=== PATIENT | female | born 1940 | race Caucasian/White ===

== ENCOUNTER 2022-01-16 20:13 | Emergency (ER) | payer MEDICARE ==
[2022-01-16] MEDS ORDERED: TORAdol 30 mg Injection IV ONE (20:44)
[2022-01-16] MEDS ORDERED: DECADRON 10MG INJ. IV ONE (20:46)
[2022-01-16] MEDS ORDERED: DECADRON 10MG INJ. ONE (20:48)
[2022-01-16] MEDS ORDERED: TORAdol 30 mg Injection ONE (20:48)
[2022-01-16] MEDS ORDERED: TORAdol 30 mg Injection IM ONE (20:50)
[2022-01-16] MEDS ORDERED: DECADRON 10MG INJ. IM ONE (20:51)
--- NOTE | 2022-01-16 20:53 | ERPHSYRPT ---
- History of Present Illness Time Seen by Provider: 01/16/22 20:47 Source: patient Exam Limitations: no limitations Patient Subjective Stated Complaint: pt states "My back has been hurting for a month. I have seen my doctor for it and I have a MRI scheduled on Sunday." Triage Nursing Assessment: pt ambulatory to bed by self, pt assisted in bed by this nurse, pt alert and oriented x3, pt c/o low back pain x1 month, pt has seen PCP and have done xrays on back but they did not find any abnormal result, pt has MRI scheduled for Sunday Physician History: Patient is 81-year-old female presents to our ED with chronic back pain. Patient has seen a chiropractor for her back pain. He ordered an x-ray that was essentially read as negative. Patient follow-up with her primary care doctor who ordered an MRI of her back. MRI scheduled for this coming Sunday. Patient states her doctor believes it is a pinched nerve. Patient had a work-up initiated which included a urinalysis. Patient is UA was negative. No change in the character of her pain. Pain described as an ache that is across the lower back. However she occasionally feels a shooting sensation down her right leg into her thigh. No trauma. No fever. No recent back procedures. No change in bowel bladder function. No saddle anesthesia. Symptoms are mild to moderate in intensity. Patient declined narcotic pain medication. Daughter at bedside. They voiced no other complaints or concerns at this time. Portions of this note were created with voice recognition technology. There may be grammatical, spelling, punctuation or sound alike errors Timing/Duration: week(s) (4 weeks) Method of Injury: unknown Quality: aching Back Pain Location: lumbar spine Back Pain Radiation: upper legs Severity of Pain-Max: moderate Severity of Pain-Current: mild Modifying Factors: Improves With: movement Associated Symptoms: denies symptoms, No fever, No urinary incontinence, No loss of bowel control, No nausea, No vomiting, No problems urinating, No light- headedness, No dizziness, No numbness in legs/feet, No weakness, No sensory/motor loss, No tingling in legs/feet, No lower back pain, No muscle spasms Previous symptoms: same symptoms as today Allergies/Adverse Reactions: No Known Drug Allergies Allergy (Verified 01/16/22 20:34) Home Medications: Allopurinol 100 mg [Zyloprim 100 mg] 100 mg PO DAILY 01/16/22 [History] Aspirin 81 gm Chew [Baby Aspirin 81 mg Chew] 81 mg PO DAILY 01/16/22 [History] Cholecalciferol (Vitamin D3) [Vitamin D3] 25 mcg PO WEEKLY 01/16/22 [History] Ferrous Sulfate 325 mg [Feosol 325 mg] 325 mg PO TID 01/16/22 [History] Levothyroxine Sodium [Levothyroxine] 25 mcg PO DAILY 01/16/22 [History] Losartan/Hydrochlorothiazide [Losartan-Hctz 100-25 mg Tab] 1 tab PO DAILY 01/16/22 [History] Metformin HCl 500 mg [Glucophage 500 MG] 500 mg PO BID 01/16/22 [History] Omeprazole 20 mg PO DAILY 01/16/22 [History] Potassium Chloride 10 meq PO DAILY 01/16/22 [History] Simvastatin 10 mg [Zocor 10MG] 10 mg PO DAILY 01/16/22 [History] Hx Tetanus, Diphtheria Vaccination/Date Given: Yes Hx Influenza Vaccination/Date Given: Yes Hx Pneumococcal Vaccination/Date Given: No Immunizations Up to Date: Yes Travel Risk - International Travel Have you traveled outside of the country in past 3 weeks: No - Coronavirus Screening Are you exhibiting any of the following symptoms?: No Close contact with a COVID-19 positive Pt in past 14-21 Days: No - Vaccine Status Have you recieved a Covid-19 vaccination: Yes 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 - Vaccination Dates Date of 2cond Vaccination (if applicable): 2019 - Review of Systems Constitutional: No Symptoms, No Fever, No Chills Eyes: No Symptoms Ears, Nose, & Throat: No Symptoms Respiratory: No Symptoms, No Cough, No Dyspnea Cardiac: No Symptoms, No Chest Pain, No Edema, No Syncope Abdominal/Gastrointestinal: No Symptoms, No Abdominal Pain, No Nausea, No Vomiting, No Diarrhea Genitourinary Symptoms: No Symptoms, No Dysuria Musculoskeletal: No Symptoms, No Back Pain, No Neck Pain Skin: No Symptoms, No Rash Neurological: No Symptoms, No Dizziness, No Focal Weakness, No Sensory Changes Psychological: No Symptoms Endocrine: No Symptoms Hematologic/Lymphatic: No Symptoms Immunological/Allergic: No Symptoms All Other Systems: Reviewed and Negative - Past Medical History Pertinent Past Medical History: Yes Neurological History: No Pertinent History ENT History: No Pertinent History Cardiac History: High Cholesterol, Hypertension Respiratory History: No Pertinent History Endocrine Medical History: Diabetes Type II, Hypothyroidism Musculoskeletal History: No Pertinent History GI Medical History: No Pertinent History History: No Pertinent History Psycho-Social History: No Pertinent History Female Reproductive Disorders: No Pertinent History Other Medical History: gout - Past Surgical History Past Surgical History: Yes Musculoskeletal: Orthopedic Surgery Female Surgical History: Hysterectomy, Section Other Surgical History: L wrist - Social History Smoking Status: Never smoker Exposure to second hand smoke: No Drug Use: none Patient Lives Alone: Yes - Nursing Vital Signs Nursing Vital Signs: Initial Vital Signs Temperature 97.6 F 01/16/22 20:25 Pulse Rate 96 H 01/16/22 20:25 Respiratory Rate 18 01/16/22 20:25 Blood Pressure 163/105 01/16/22 20:25 O2 Sat by Pulse Oximetry 163 H 01/16/22 20:25 Pain Scale Pain Intensity [Back] 10 Pain Intensity 10 - Physical Exam General Appearance: no apparent distress, alert Eye Exam: PERRL/EOMI, eyes nml inspection Ears, Nose, Throat Exam: normal ENT inspection, pharynx normal Neck Exam: normal inspection, non-tender, supple, full range of motion, No meningismus, No midline tenderness Respiratory Exam: normal breath sounds, lungs clear, airway intact, No respiratory distress Cardiovascular Exam: regular rate/rhythm, normal heart sounds, normal peripheral pulses Gastrointestinal Exam: soft, normal bowel sounds, other (No abdominal pulsatile masses.), No tenderness, No distention, No mass Back Exam: normal inspection, other (Pain across lower back. Overlying soft tissue intact. No signs of trauma.) Extremity Exam: normal inspection, normal range of motion, No calf tenderness, No pedal edema Peripheral Pulses: dorsalis-pedis (R): 2+, dorsalis-pedis (L): 2+ Neurologic Exam: alert, oriented x 3, cooperative, pega developer II-XII nml as tested, normal mood/affect, nml station & gait, sensation nml, No motor deficits Skin Exam: normal color, warm, dry, No rash SpO2 Interpretation: normal SpO2: 163 O2 Delivery: Room Air - Course Nursing assessment & vital signs reviewed: Yes Ordered Tests: Medication Summary Discontinued Medications Generic Name Dose Route Start Last Admin Trade Name Roger PRN Reason Stop Dose Admin Dexamethasone Sodium Phosphate 10 mg 01/16/22 20:46 Dexamethasone Sod Phosphate 10 Mg/Ml IV 01/16/22 20:47 STAT ONE Ketorolac Tromethamine 30 mg 01/16/22 20:44 Ketorolac Tromethamine 30 Mg/Ml Inj IV 01/16/22 20:45 STAT ONE - Progress Progress: improved Progress Note: 81-year-old female chronic back pain. Patient is here for pain control. Patient currently has an MRI scheduled for Sunday. Patient has had a complete work-up including urinalysis. No indication for additional imaging or urine studies as patient currently has been worked up for her back pain and is awaiting an MRI. Daughter at bedside. Patient declined narcotic pain medication. Patient received Toradol and Decadron. Patient understands that it may take some time for these medications to work. No indication for further work-up will discharge home. Patient agrees to follow-up with her primary care doctor as scheduled. Patient will also have her MRI as scheduled. Patient voices no other complaints or concerns at this time. 01/16/22 20:54 Counseled pt/family regarding: diagnosis, need for follow-up - Departure Departure Disposition: Home Clinical Impression: Chronic back pain Condition: Stable Critical Care Time: No Referrals: YURY OWENS MD [Primary Care Provider] - Follow up/PCP as directed Additional Instructions: Discharge/Care Plan CANDICE DAS was seen on 01/16/22 in the Emergency Room. The patient was counseled regarding Diagnosis,Lab results, Imaging studies, need for follow up and when to return to the Emergency Room. Prescriptions given: Discharge Note I have spoken with the patient and/or caregivers. I have explained the patient's condition, diagnosis and treatment plan based on the information available to me at this time. I have answered the patient's and/or caregiver's questions and addressed any concerns. The patient and/or caregivers have as good understanding of the patient's diagnosis, condition and treatment plan as can be expected at this point. The vital signs have been stable. The patient's condition is stable and appropriate for discharge from the emergency department. The patient will pursue further outpatient evaluation with the primary care physician or other designated or consulting physician as outlined in the discharge instructions. The patient and/or caregivers are agreeable to this plan of care and follow-up instructions have been explained in detail. The patient and/or caregivers have received these instruction. The patient/and or caregivers are aware that any significant change in condition or worsening of symptoms should prompt an immediate return to this or the closest emergency department or call 911.
[2022-01-16 21:11] VITALS: BP 167/89; PULSE 84; O2SAT 97
== END 2022-01-16 21:08 | disposition home or self-care (01) ==
LOC: ED 20:13
DX: G89.29 Other chronic pain (principal); M54.50 Low back pain, unspecified; Z79.84 Long term (current) use of oral hypoglycemic drugs; Z79.899 Other long term (current) drug therapy; E78.5 Hyperlipidemia, unspecified; I10 Essential (primary) hypertension; E11.9 Type 2 diabetes mellitus without complications
CPT/HCPCS: 96372; 99283; J1100; J1885